=== PATIENT | male | born 1995 | race African-American/Black ===

== ENCOUNTER 2025-03-03 10:33 | Emergency (ER) | payer BC ==
[2025-03-03] MEDS ORDERED: Ketorolac Tromethamine 30 MG (1 mL) VIAL ONE (11:18)
[2025-03-03] MEDS ORDERED: Dexamethasone 10 MG/ML VIAL ONE (12:14)
== END 2025-03-03 12:18 | disposition home or self-care (01) ==
LOC: CSHERS 10:33
DX: J02.9 Acute pharyngitis, unspecified (principal)
CPT/HCPCS: 87081; 87426; 87430; 96372; 99283; J1100; J1885